=== PATIENT | male | born 1935 | race Caucasian/White ===

== ENCOUNTER → 2016-10-31 | Outpatient (CLI) | payer BC ==
[~2016-10-31] MED LIST: ASPIR-LOW81 MG PO; ASPIR-TRIN325 MG PO; Aspirin E.C. PO; COUMADIN2 MG PO; Coumadin,Jantoven PO; FLONASE16 G1 BOTH NARES; HYDROCODON-ACE1 EAC7 PO; K-Dur PO; KLOR-CON M2020 MEQ PO; LASIX40 MG PO; LASIX80 MG PO; LIVALO2 MG PO; Lasix PO; Livalo PO; PERCOCET 5/31 TABLET PO; PERCOCET 7.51 TABLET PO; PLAVIX75 MG PO; PROTONIX40 MG PO; Plavix PO; QUINAPRIL HCL20 MG PO; ROBAXIN500 MG PO; Vibramycin, Doryx PO; Vicodin,Norco 5/325 PO
== END | disposition home or self-care (01) ==
DX: R13.11 Dysphagia, oral phase (principal); R13.13 Dysphagia, pharyngeal phase
CPT/HCPCS: 92611 GN; G8996 GN; G8997 GN; G8998 GN